=== PATIENT | male | born 2000 | race Caucasian/White ===

== ENCOUNTER 2019-11-23 07:27 | Emergency (ER) | payer SELFPAY ==
[~2019-11-23] VITALS: Ht 193 cm; Wt 122.0 kg
[2019-11-23] MEDS ORDERED: IV NORMAL SALINE 1,000ML 1,000 ML IV ONE (07:30)
[2019-11-23] MEDS ORDERED: ONDANSETRON PF 4 MG/2 ML VIAL. IVP ONE (07:30)
--- NOTE | 2019-11-23 07:34 | PHYS DOC ---
Past History Past Medical History: Seizure Smoking: Non-smoker Alcohol Use: None Drug Use: None General Adult HPI: HPI: Patient is a 19-year-old male, who arrives via EMS after having a witnessed generalized tonic-clonic seizure at work. He states that he fell, and did strike the left side of his head/supraorbital area on the ground when he fell. He did not bite his tongue or lose urinary continence. Patient was postictal upon EMS arrival and is having improving mental status throughout transport and in his initial ER stay. He complains of a generalized headache, typical for him after his headaches. He denies any other injuries or any other painful areas. He does have a superficial abrasion on his left upper eyelid. He states that he is prescribed Depakote 500 mg twice a day for seizures, but he stopped taking it several weeks ago, stating that he thought he was fine, as he had not had a seizure in quite some time. There are no alleviating or exacerbating factors to his symptoms otherwise. Review of Systems: Review of Systems: Constitutional: Denies fever or chills Eyes: Denies change in visual acuity HENT: Denies nasal congestion or sore throat Respiratory: Denies cough or shortness of breath Cardiovascular: Denies chest pain or edema GI: Denies abdominal pain, nausea, vomiting, bloody stools or diarrhea : Denies dysuria Musculoskeletal: Denies back pain or joint pain Integument: Denies rash Neurologic: Denies focal weakness or sensory changes Endocrine: Denies polyuria or polydipsia Lymphatic: Denies swollen glands Psychiatric: Denies depression or anxiety Heart Score: Risk Factors: Risk Factors: DM, Current or recent (<one month) smoker, HTN, HLP, family history of CAD, obesity. Risk Scores: Score 0 - 3: 2.5% MACE over next 6 weeks - Discharge Home Score 4 - 6: 20.3% MACE over next 6 weeks - Admit for Clinical Observation Score 7 - 10: 72.7% MACE over next 6 weeks - Early Invasive Strategies Physical Exam: PE: PHYSICAL EXAM: CONSTITUTIONAL: Well developed, well nourished HEAD: normocephalic, there is a contusion on the left supraorbital forehead, the remainder the cranium is atraumatic. EENT: PERRL, EOMI. Conjunctivae normal color, sclerae non-icteric; moist mucous membranes. There is a 1 cm laceration on the upper eyelid, superficial, the globe is uninjured. There is no tongue abrasion or laceration. NECK: Supple, non-tender; no meningismus. There is full, painless range of motion of the cervical spine, without any focal bony midline tenderness to palpation. LUNGS: Lungs CTA, breathing even and unlabored. Normal air movement. HEART: Regular rate and rhythm, no murmur CHEST: No deformity; non-tender ABDOMEN: The abdomen is soft, and non-tender, no masses or bruits. EXTREM: Normal ROM; no deformity, no calf tenderness. Normal pulses palpable in all extremities. There is no pedal edema. SKIN: No rash; no diaphoresis NEURO: Somnolent but awake and oriented,normal speech and cognition; CN's grossly intact; strength grossly intact without focal deficit. BACK: No CVA TTP. There is no bony tenderness to palpation of the thoracic or lumbar spine. Current Patient Data: Labs: Laboratory Tests Test 11/23/19 07:30 11/23/19 07:43 Sodium Level 138 mmol/L Potassium Level 4.0 mmol/L Chloride Level 103 mmol/L Carbon Dioxide Level 20 mmol/L Anion Gap 15 Blood Urea Nitrogen 11 mg/dL Creatinine 1.1 mg/dL Estimated GFR (Cockcroft-Gault) 85.3 BUN/Creatinine Ratio 10 Glucose Level 111 mg/dL Calcium Level 9.4 mg/dL Total Bilirubin 0.4 mg/dL Aspartate Amino Transf (AST/SGOT) 33 U/L Alanine Aminotransferase (ALT/SGPT) 80 U/L Alkaline Phosphatase 76 U/L Total Protein 7.5 g/dL Albumin 3.9 g/dL Albumin/Globulin Ratio 1.1 White Blood Count 9.6 x10^3/uL Red Blood Count 5.32 x10^6/uL Hemoglobin 16.2 g/dL Hematocrit 48.3 % Mean Corpuscular Volume 91 fL Mean Corpuscular Hemoglobin 30 pg Mean Corpuscular Hemoglobin Concent 34 g/dL Red Cell Distribution Width 13.8 % Platelet Count 296 x10^3/uL Neutrophils (%) (Auto) 45 % Lymphocytes (%) (Auto) 42 % Monocytes (%) (Auto) 10 % Eosinophils (%) (Auto) 2 % Basophils (%) (Auto) 1 % Neutrophils # (Auto) 4.4 x10^3uL Lymphocytes # (Auto) 4.0 x10^3/uL Monocytes # (Auto) 0.9 x10^3/uL Eosinophils # (Auto) 0.2 x10^3/uL Basophils # (Auto) 0.1 x10^3/uL Current Medications Medications (Trade) Dose Ordered Sig/Mis Route PRN Reason Start Time Stop Time Status Last Admin Dose Admin Ondansetron HCl (Zofran) 4 mg 1X ONCE IVP 11/23/19 07:30 11/23/19 07:44 DC 11/23/19 07:50 Sodium Chloride 1,000 ml @ 1,000 mls/hr 1X ONCE IV 11/23/19 07:30 11/23/19 08:29 DC 11/23/19 07:49 Lorazepam (Ativan Inj) 1 mg 1X ONCE IVP 11/23/19 07:45 11/23/19 07:46 DC 11/23/19 07:50 Valproic Acid (Depakene) 500 mg 1X ONCE PO 11/23/19 08:00 11/23/19 08:01 DC 11/23/19 08:14 EKG: EKG: [] Radiology/Procedures: Radiology/Procedures: [] Course & Med Decision Making: Course & Med Decision Making Pertinent Labs reviewed. (See chart for details) [] LACERATION REPAIR NOTE: A 1 cm left upper eyelid laceration was irrigated with normal saline and closed with Dermabond. The wound was superficial and did not involve the tarsal plate. No foreign body was visualized. The patient's condition remains stable. He is ambulatory without difficulty. He states he has an adequate supply of his seizure medication at home, something I encouraged him to continue. I discussed seizure precautions, importance of close follow-up with his primary care provider, and return precautions in detail. Dragon Disclaimer: Dragon Disclaimer: This electronic medical record was generated, in whole or in part, using a voice recognition dictation system. Departure Departure: Impression: Primary Impression: Seizure Additional Impression: Nonadherence to medication Disposition: HOME, SELF-CARE Condition: STABLE Referrals: HENNY FERNANDEZ MD Patient Instructions: Seizure, Adult Additional Instructions: Continue to take your previously prescribed seizure medications. JOSE MORA MD November 23, 2019 07:34
[2019-11-23 07:56] LABS: BASO # 0.1 x10^3/uL (0.0-0.2); BASO % 1 % (0-3); EOS # 0.2 x10^3/uL (0.0-0.7); EOS % 2 % (0-3); HEMATOCRIT 48.3 % (39.0-53.0); HEMOGLOBIN 16.2 g/dL (13.0-17.5); LYMPH % 42 % (24-48); MEAN CORPUSCULAR HEMOGLOBIN 30 pg (25-35); MEAN CORPUSCULAR HGB CONC 34 g/dL (31-37); MEAN CORPUSCULAR VOLUME 91 fL (79-100); MONO # 0.9 x10^3/uL (0.0-1.1); MONO % 10 % (0-9); NEUT # 4.4 x10^3uL (1.8-7.7); NEUT % 45 % (31-73); PLATELET COUNT 296 x10^3/uL (140-400); RED BLOOD COUNT 5.32 x10^6/uL (4.30-5.70); RED CELL DISTRIBUTION WIDTH 13.8 % (11.5-14.5); WHITE BLOOD COUNT 9.6 x10^3/uL (4.0-11.0)
[2019-11-23] MEDS ORDERED: VALPROIC ACID 250 MG CAPSULE. PO ONE (08:00)
[2019-11-23 08:02] LABS: CALCIUM 9.4 mg/dL (8.5-10.1); CREATININE 1.1 mg/dL (0.7-1.3); GFR 85.3
[2019-11-23 08:08] LABS: ALBUMIN 3.9 g/dL (3.4-5.0); ALBUMIN/GLOBULIN RATIO 1.1 (1.0-1.7); TOTAL BILIRUBIN 0.4 mg/dL (0.2-1.0); TOTAL PROTEIN 7.5 g/dL (6.4-8.2)
[2019-11-23 08:18] VITALS: BP 132/86
[2019-11-23] MEDS ORDERED: ACETAMINOPHEN 500 MG TABLET PO ONE (09:00)
== END 2019-11-23 09:25 | disposition home or self-care (01) ==
LOC: ER 07:27
DX: S01.112A Laceration without foreign body of left eyelid and periocular area, initial encounter (principal); S00.83XA Contusion of other part of head, initial encounter; G40.89 Other seizures; Z91.14 Patient's other noncompliance with medication regimen; W18.39XA Other fall on same level, initial encounter; Y93.89 Activity, other specified; Y92.89 Other specified places as the place of occurrence of the external cause; Y99.8 Other external cause status
CPT/HCPCS: 12011; 36415; 80053; 85025; 96374; 96375; 99284; J2060; J2405; J7030

== ENCOUNTER → 2019-11-25 | Outpatient (CLI) | payer BC ==
[2019-11-23 08:18] VITALS: BP 132/86
[2019-11-25 14:29] LABS: VAL ACID 49 mcg/mL (50-100)
== END | disposition home or self-care (01) ==
LOC: LAB 13:16
PROVIDERS: ATTEND Psychiatry & Neurology Neurology
DX: G40.89 Other seizures (principal)
CPT/HCPCS: 36415; 80164

== ENCOUNTER → 2019-12-09 | Outpatient (CLI) | payer BC ==
[2019-11-23 08:18] VITALS: BP 132/86
[2019-12-09 13:01] LABS: VAL ACID 81 mcg/mL (50-100)
== END | disposition home or self-care (01) ==
LOC: LAB 11:45
PROVIDERS: ATTEND Psychiatry & Neurology Neurology
DX: R56.9 Unspecified convulsions (principal)
CPT/HCPCS: 36415; 80164

== ENCOUNTER 2020-06-09 13:36 | Emergency (ER) | payer BC ==
[~2020-06-09] VITALS: Ht 193 cm; Wt 124.9 kg
[2020-06-09 13:36] VITALS: BP 141/95
--- NOTE | 2020-06-09 13:43 | PHYS DOC ---
Past History Past Medical History: No Pertinent History, Seizure Past Surgical History: No Surgical History Smoking: Non-smoker Alcohol Use: Occasionally Drug Use: None Adult General Chief Complaint Chief Complaint: SEIZURE HPI HPI Patient is a 19-year-old male who presents via EMS for seizure. Episode jason julia approximately 1 hour prior to arrival, this was witnessed as patient was at home in reclining chair and suffered seizure which is typical for him, grand mal in nature lasting less than 1 minute. This resolved without any intervention but patient has had increased seizure activity in past 48 hours prompting patient's girlfriend to call EMS for transport to our facility for evaluation. Patient has a history of seizure and is established with Dr. Fernandez, he takes Depakote daily and admits he has not been compliant with this medication for past 1 week. States he is also been sleeping poorly, has been staying up later and having decreased hours of sleep than usual which has caused him to have seizures in the past. Denies any recent fever, URI-like symptoms, concerning ingestions or exposures or recent travel. He did not hit his head today as he was in the chair, no trauma Review of Systems Review of Systems Fourteen body systems of review of systems have been reviewed. See HPI for pertinent positives and negative responses, other olson all other systems are negative, non-pertinent or non-contributory Allergies Allergies Allergies Coded Allergies Type Severity Reaction Last Updated Verified No Known Drug Allergies 11/23/19 No Physical Exam Physical Exam Constitutional: Pt is oriented to person, place, and time. Pt appears well- developed and well-nourished. Postictal at this time HENT: Head: Normocephalic and atraumatic. Mouth/Throat: Oropharynx is clear and moist. No hematomas or lacerations or abrasions to face or scalp OP clear, no blood, no malocclusion, dentition intact Nares clear, no nasal septal hematoma TMs clear, no hemotympanum Midface stable Eyes: Conjunctivae and EOM are normal. Pupils are equal, round, and reactive to light. Neck: C-spine midline nontender, no step-offs Cardiovascular: Normal rate, regular rhythm and normal heart sounds. Pulmonary/Chest: Effort normal and breath sounds normal. No respiratory distress. No wheezes. CTA bilaterally Abdominal: Soft. Bowel sounds are normal. Pt exhibits no distension. There is no tenderness. Musculoskeletal: No bony tenderness to extremities, no deformities, full ROM extremities Chest wall stable Pelvis stable and non-tender No vertebral TTP and spine without stepoffs Neurological: Pt is alert and oriented to person, place, and time. Moving all extremities willfully, able to wiggle all fingers and toes Alert and oriented x 3 Sensation grossly intact Skin: Skin is warm and dry. No abrasions, no lacerations Psychiatric: Behavior is appropriate for situation Nursing note and vitals reviewed. Current Patient Data Vital Signs Vital Signs Date Time Temp Pulse Resp B/P (MAP) Pulse Ox O2 Delivery O2 Flow Rate FiO2 06/09/20 13:36 98.1 120 28 141/95 (110) 90 Room Air Lab Results Laboratory Tests Test 06/09/20 13:44 06/09/20 13:58 White Blood Count 12.3 x10^3/uL (4.0-11.0) Red Blood Count 5.38 x10^6/uL (4.30-5.70) Hemoglobin 16.0 g/dL (13.0-17.5) Hematocrit 48.7 % (39.0-53.0) Mean Corpuscular Volume 91 fL (79-100) Mean Corpuscular Hemoglobin 30 pg (25-35) Mean Corpuscular Hemoglobin Concent 33 g/dL (31-37) Red Cell Distribution Width 13.5 % (11.5-14.5) Platelet Count 327 x10^3/uL (140-400) Neutrophils (%) (Auto) 49 % (31-73) Lymphocytes (%) (Auto) 41 % (24-48) Monocytes (%) (Auto) 8 % (0-9) Eosinophils (%) (Auto) 1 % (0-3) Basophils (%) (Auto) 1 % (0-3) Neutrophils # (Auto) 6.0 x10^3uL (1.8-7.7) Lymphocytes # (Auto) 5.0 x10^3/uL (1.0-4.8) Monocytes # (Auto) 1.0 x10^3/uL (0.0-1.1) Eosinophils # (Auto) 0.2 x10^3/uL (0.0-0.7) Basophils # (Auto) 0.1 x10^3/uL (0.0-0.2) Sodium Level 139 mmol/L (136-145) Potassium Level 4.0 mmol/L (3.5-5.1) Chloride Level 101 mmol/L (98-107) Carbon Dioxide Level 21 mmol/L (21-32) Anion Gap 17 (6-14) Blood Urea Nitrogen 9 mg/dL (8-26) Creatinine 1.2 mg/dL (0.7-1.3) Estimated GFR (Cockcroft-Gault) 77.2 BUN/Creatinine Ratio 8 (6-20) Glucose Level 112 mg/dL (70-99) Calcium Level 9.4 mg/dL (8.5-10.1) Total Bilirubin 0.4 mg/dL (0.2-1.0) Aspartate Amino Transf (AST/SGOT) 23 U/L (15-37) Alanine Aminotransferase (ALT/SGPT) 60 U/L (16-63) Alkaline Phosphatase 87 U/L (46-116) Total Protein 7.7 g/dL (6.4-8.2) Albumin 3.8 g/dL (3.4-5.0) Albumin/Globulin Ratio 1.0 (1.0-1.7) Valproic Acid (Depakene) Level 8 mcg/mL (50-100) Valproic Acid Last Dose Date 06/08/20 Valproic Acid Last Dose Time 0800 Glucose (Fingerstick) 114 mg/dL (70-99) EKG EKG [] Radiology/Procedures Radiology/Procedures PROCEDURE: CHEST AP ONLY CHEST AP ONLY Clinical indications: Reason: TACHYCARDIA, SEIZURE COMPARISON: None available. Findings: No acute lung infiltrate or pleural effusion or pulmonary edema or lung mass or pneumothorax is seen. The heart size, pulmonary vasculature, mediastinum and both pao are unremarkable. Impression: No acute radiographic abnormality is seen. X-ray Electronically signed by: Mio Randall MD (06/09/2020 2:02 PM) [id number] Heart Score Risk Factors: Risk Factors: DM, Current or recent (<one month) smoker, HTN, HLP, family history of CAD, obesity. Risk Scores: Risk Factors: DM, Current or recent (<one month) smoker, HTN, HLP, family history of CAD, obesity. Course & Med Decision Making Course & Med Decision Making Pertinent Labs and Imaging studies reviewed. (See chart for details) Discussed most likely diagnosis of seizure typical per his history. Patient has had increased frequency of seizures secondary to lack of Depakote compliance. Patient has adequate supply of this at home just has not been taking it. Attempts were made to call Dr. Fernandez but after review, patient's appropriate reloading dose would be consistent with typical daily dose of 500 mg 3 times daily. Patient's post ictal state completely resolved, at baseline and patient felt he was fit for discharge home. Patient has good access to PCP and neurology care in outpatient setting and can be seen in upcoming week which I feel is appropriate. Strict return precautions were discussed with good understanding by patient, all questions and concerns addressed prior to ER departure in improved condition Dragon Disclaimer Dragon Disclaimer This electronic medical record was generated, in whole or in part, using a voice recognition dictation system. Departure Departure: Impression: Primary Impression: Seizure Additional Impression: Noncompliance w/medication treatment due to intermit use of medication Disposition: 01 DC HOME SELF CARE/HOMELESS Condition: IMPROVED Referrals: HENNY FERNANDEZ MD (PCP) Patient Instructions: Seizure, Adult, Valproic Acid, Divalproex Sodium capsules Additional Instructions: As discussed prior to ER departure, please call your primary care physician and neurologist schedule outpatient follow-up in upcoming 2 to 14 days after ER departure As discussed, please ensure you are taking your Depakote as scheduled, 500 mg 3 times daily Your levels were low, 8 when ideal ranges between 50-100. You will likely need your levels rechecked in outpatient setting by either your primary care physician and/or neurologist in upcoming 1 to 2 weeks of consistent use. There might be indication for medication increase If any concerning signs or symptoms present prior to outpatient follow-up please do not hesitate to come back for repeat examination It was a pleasure to take care of you and I wish you a speedy recovery Problem Qualifiers LEO CISNEROS DO Jun 09, 2020 13:42
[2020-06-09] MEDS ORDERED: ACETAMINOPHEN 325 MG TABLET PO ONE (13:45)
[2020-06-09] MEDS ORDERED: IV NORMAL SALINE 1,000ML 1,000 ML IV ONE (13:45)
[2020-06-09 14:02] LABS: BASO # 0.1 x10^3/uL (0.0-0.2); BASO % 1 % (0-3); EOS # 0.2 x10^3/uL (0.0-0.7); EOS % 1 % (0-3); HEMATOCRIT 48.7 % (39.0-53.0); LYMPH % 41 % (24-48); MEAN CORPUSCULAR HEMOGLOBIN 30 pg (25-35); MEAN CORPUSCULAR HGB CONC 33 g/dL (31-37); MEAN CORPUSCULAR VOLUME 91 fL (79-100); MONO % 8 % (0-9); NEUT % 49 % (31-73); PLATELET COUNT 327 x10^3/uL (140-400); RED BLOOD COUNT 5.38 x10^6/uL (4.30-5.70); RED CELL DISTRIBUTION WIDTH 13.5 % (11.5-14.5); WHITE BLOOD COUNT 12.3 x10^3/uL (4.0-11.0)
[2020-06-09 14:05] LABS: ANION GAP 17 (6-14); BLOOD UREA NITROGEN 9 mg/dL (8-26); BUN/CREATININE RATIO 8 (6-20); CALCIUM 9.4 mg/dL (8.5-10.1); CARBON DIOXIDE 21 mmol/L (21-32); CHLORIDE 101 mmol/L (98-107); CREATININE 1.2 mg/dL (0.7-1.3); GFR 77.2; GLUCOSE 112 mg/dL (70-99); SODIUM 139 mmol/L (136-145)
--- NOTE | 2020-06-09 14:05 | RAD ---
CHEST AP ONLY Clinical indications: Reason: TACHYCARDIA, SEIZURE COMPARISON: None available. Findings: No acute lung infiltrate or pleural effusion or pulmonary edema or lung mass or pneumothorax is seen. The heart size, pulmonary vasculature, mediastinum and both pao are unremarkable. Impression: No acute radiographic abnormality is seen. X-ray Electronically signed by: Mio Randall MD (06/09/2020 2:02 PM) [id number]
[2020-06-09 14:11] LABS: ALBUMIN 3.8 g/dL (3.4-5.0); ALK PHOS 87 U/L (46-116); ALT (SGPT) 60 U/L (16-63); AST (SGOT) 23 U/L (15-37); TOTAL BILIRUBIN 0.4 mg/dL (0.2-1.0); TOTAL PROTEIN 7.7 g/dL (6.4-8.2)
[2020-06-09 14:23] LABS: VAL ACID 8 mcg/mL (50-100)
--- NOTE | 2020-06-09 16:45 | EKG ---
[address] [address] Test Date: 2020-06-09 Test Time: 13:51:13 Pat Name: VICKY MARTINEZ Department: Room: Gender: M Local Flat[employer]: : 2000 Requested By: LEO CISNEROS Order Number: [id number] Reading MD: Cachorro Nassar Measurements Intervals [place] Rate: 108 P: 37 CT: 130 QRS: 43 QRSD: 96 T: 21 QT: 330 QTc: 446 Interpretive Statements SINUS TACHYCARDIA Electronically Signed On 06-12-2020 10:48:30 GUIDE ESCORT by Cachorro Nassar
== END 2020-06-09 15:09 | disposition home or self-care (01) ==
LOC: ER 13:36
DX: R56.9 Unspecified convulsions (principal); Z91.14 Patient's other noncompliance with medication regimen
CPT/HCPCS: 36415; 71045; 80053; 80164; 82947; 85025; 93005; 96360; 99285; J7030

== ENCOUNTER → 2020-07-17 | Outpatient (CLI) | payer BC ==
[2020-07-17 12:52] LABS: VAL ACID 44 mcg/mL (50-100)
== END ==
LOC: LAB 10:16
PROVIDERS: ATTEND Psychiatry & Neurology Neurology
DX: R56.9 Unspecified convulsions (principal)
CPT/HCPCS: 36415; 80164